=== PATIENT | female | born 1960 | race Caucasian/White ===

== ENCOUNTER 2018-12-17 20:38 | Emergency (ER) | payer BC ==
[2018-12-17] MEDS ORDERED: Ibuprofen TAB* 600 MG PO ONE (21:09)
--- NOTE | 2018-12-17 21:10 | ED ---
Upper Extremity Pain - HPI Summary HPI Summary: Patient is a 58-year-old female department for laceration to right fingers after reaching into laworower. Incident occurred just prior to arrival. Patient unaware of last tetanus immunization. No significant past medical history. Symptoms are mild in severity. Moving and touching affected areas makes symptoms worse. Rest makes symptoms better. - History of Current Complaint Chief Complaint: EDLacSutureRecheck Stated Complaint: CAME CLOSE TO CHOPPING MY FINGERS OFF PER PT Time Seen by Provider: 12/17/18 20:52 Hx Obtained From: Patient - Allergies/Home Medications Allergies/Adverse Reactions: Allergies Allergy/AdvReac Type Severity Reaction Status Date / Time metronidazole [From Flagyl] Allergy Dizziness Verified 12/17/18 20:44 PMH/Surg Hx/FS Hx/Imm Hx Previously Healthy: Yes - Surgical History Surgery Procedure, Year, and Place: left and right ovary removed, right foot reconstruction Infectious Disease History: No Infectious Disease History: Denies: Hx Clostridium Difficile, Hx Hepatitis, Hx Human Immunodeficiency Virus (HIV), Hx Shingles, Hx Tuberculosis, History Other Infectious Disease, Traveled Outside the in Last 30 Days - Family History Known Family History: Positive: Non-Contributory - Social History Occupation: Employed Full-time Lives: With Family Alcohol Use: None Substance Use Type: Reports: None Smoking Status (MU): Heavy Every Day Tobacco Smoker Review of Systems Positive: Other - pain and lacerations right hand 3rd and 4th digits Negative: Weakness, Paresthesia, Numbness All Other Systems Reviewed And Are Negative: Yes Physical Exam Triage Information Reviewed: Yes Vital Signs On Initial Exam: Initial Vitals Temp Pulse Resp BP Pulse Ox 98.2 F 82 16 149/99 98 12/17/18 20:39 12/17/18 20:39 12/17/18 20:39 12/17/18 20:39 12/17/18 20:39 Vital Signs Reviewed: Yes Appearance: Positive: Well-Appearing - Pt. sitting on bed in NAD. present. Skin: Positive: Warm, Dry Head/Face: Positive: Normal Head/Face Inspection Eyes: Positive: Normal, EOMI, LUCRECIA Neck: Positive: Supple Musculoskeletal: Positive: Other - Noted to 3rd and 4th digits of right hand there are superficial lacerations noted along lateral aspect of nails. Minimal bleeding. No damage to nailbeds. Ecchymosis noted to pad of fingers. Full ROM. Neurological: Positive: Normal, CN Intact II-III Procedures - Procedure Summary Procedure Summary: Wound care: Superficial <1cm wounds to 3rd and 4th digits were clean with hibiclens and saline. Bacitracin and sterile dressing placed. - Splinting Right 4th Digit Pre-Made Type: metal - finger splint Pre-Proc Neuro Vasc Exam: normal Post-Proc Neuro Vasc Exam: normal Right 3rd Digit Pre-Made Type: metal - finger splint Pre-Proc Neuro Vasc Exam: normal Post-Proc Neuro Vasc Exam: normal Diagnostics - Vital Signs Vital Signs Temp Pulse Resp BP Pulse Ox 12/17/18 20:39 98.2 F 82 16 149/99 98 - Laboratory Lab Statement: Any lab studies that have been ordered have been reviewed, and results considered in the medical decision making process. Course/Dx - Course Course Of Treatment: Pt. presenting for injury to 3rd and 4th digits of right hand. Motrin given. Tetanus updated. Xrays shows distal phalanx fx to 3rd and 4th digits per my reading. No suturable wound. Wounds were cleaned and splinted as noted above. Pt. started on keflex. Pt. would like to continue motrin for pain as home. To schedule f.u with orhopedics. To ice and elevate. Return to ER for redness, swelling, drainage or if concerned. Pt. understands and agrees with plan. - Diagnoses Differential Diagnosis/HQI/PQRI: Positive: Fracture (Closed), Strain, Sprain Provider Diagnoses: Open finger fracture Discharge - Sign-Out/Discharge Documenting (check all that apply): Patient Departure Patient Received Moderate/Deep Sedation with Procedure: No - Discharge Plan Condition: Good Disposition: HOME Prescriptions: Cephalexin CAP* [Keflex CAP*] 500 mg PO BID #20 cap Patient Education Materials: Finger Fracture (ED), Acute Wounds (ED) Referrals: Tessa Mcintosh MD [Primary Care Provider] - Sky Ordaz MD [Medical Doctor] - Additional Instructions: Call the orthopedic office tomorrow to schedule a follow up appointment Keep splints in place Keep wounds clean and dry Take antibiotic as directed Ice and elevate Tylenol or Motrin for pain as directed Return to ER for redness, swelling, drainage, fever, or if concerned - Billing Disposition and Condition Condition: GOOD Disposition: Home
[2018-12-17] MEDS ORDERED: Tetan/Diph/Pertus SYR(Tdap)* 0.5 ML SYR(BOOSTRIX) use SYR IM ONE (21:12)
[2018-12-17] MEDS ORDERED: Cephalexin CAP* 500 MG PO ONE (22:15)
[2018-12-17 23:16] VITALS: BP 122/79
== END 2018-12-17 23:13 | disposition home or self-care (01) ==
LOC: ED 20:38
DX: S62.602B Fracture of unspecified phalanx of right middle finger, initial encounter for open fracture (principal); S62.604B Fracture of unspecified phalanx of right ring finger, initial encounter for open fracture; W31.9XXA Contact with unspecified machinery, initial encounter; Y93.H9 Activity, other involving exterior property and land maintenance, building and construction; Z88.8 Allergy status to other drugs, medicaments and biological substances; F17.210 Nicotine dependence, cigarettes, uncomplicated
CPT/HCPCS: 90471; 90715; 99282; A9270-GY

== ENCOUNTER 2019-10-06 09:59 | Emergency (ER) | payer BC ==
[2019-10-06 10:24] LABS: ABS Basophils 0.1 10^3/ul (0-0.2); ABS Eosinophils 0.3 10^3/ul (0-0.6); ABS Lymphocytes 2.9 10^3/ul (1.0-4.8); ABS Monocytes 0.5 10^3/ul (0-0.8); ABS Neutrophils 7.1 10^3/ul (1.5-7.7); Eosinophil % 2.7 %; Hematocrit 42 % (35-47); Hemoglobin 14.2 g/dL (12.0-16.0); Lymphocyte % 26.5 %; Mean Corpuscular HGB Conc 34 g/dL (31-36); Mean Corpuscular Hemoglobin 29 pg (27-31); Mean Corpuscular Volume 86 fL (80-97); Mean Platelet Volume 7.9 fL (7.4-10.4); Platelet Count 229 10^3/uL (150-450); Red Blood Count 4.88 10^6 /uL (3.70-4.87); Red Cell Distribution Width 14 % (10-15); White Blood Count 10.9 10^3/uL (3.5-10.8)
[2019-10-06 10:29] LABS: INR 0.96 (0.82-1.09)
--- NOTE | 2019-10-06 10:35 | ED ---
HPI Chest Pain - HPI Summary HPI Summary: Patient is a 59 y/o F presenting to [facility] with complaints of left anterior chest pain that onset 5-6 days ago. Episodes of pain are intermittent and last a few seconds. Pain is characterized as a twitching sensation. Episodes of pain have been occurring more frequently and she states that she has begun to experience a twitching sensation down her left arm since last night. She states that episodes of pain increased in severity today. Patient also notes experiencing indigestion and left eye twitching. She denies nausea, diaphoresis , SOB, pain/swelling at legs. No similar previous episodes are noted. She reports Hx of panic disorder and anxiety but states that this presentation of Sx is uncharacteristic of her anxiety episodes. Patient denies PMHx of PE, recent long travel, recent surgeries, and hormone therapy. PMHx of Lyme disease is noted. FMHx of rheumatoid arthritis in mother reported. PMHx of HTN, diabetes and HLD are denied. Patient takes vitamin C and D supplements, adult ASA, and tinctures for Lyme disease. She states that she quit smoking cigarettes yesterday, quit smoking marijuana 3 weeks ago, and denies alcohol consumption. Home medications and allergies are reviewed. - History of Current Complaint Chief Complaint: EDChestPainROMI Time Seen by Provider: 10/06/19 10:24 Hx Obtained From: Patient Onset/Duration: Started Days Ago Timing: Intermittent Current Severity: None Pain Intensity: 0 Pain Scale Used: 0-10 Numeric Chest Pain Location: Left Anterior Character: Other: - twitching sensation Associated Signs and Symptoms: Positive: Chest Pain, Other: - positive - indigestion, left eye twitching, left arm twitching. Negative: Shortness of Breath, Diaphoresis, Nausea, Calf Pain/Swelling - Allergy/Home Medications Allergies/Adverse Reactions: Allergies Allergy/AdvReac Type Severity Reaction Status Date / Time metronidazole [From Flagyl] Allergy Dizziness Verified 12/17/18 20:44 Home Medications: Home Medications Ascorbic Acid TAB* [Vitamin C TAB*] 500 mg PO DAILY 10/06/19 [History Confirmed 10/06/19] Aspirin EC TAB* [Ecotrin EC TAB*] 325 mg PO DAILY 10/06/19 [History Confirmed ] Cholecalciferol TAB* [Vitamin D TAB*] 10,000 units PO DAILY 10/06/19 [History Confirmed 10/06/19] Lyme Support 0.25 - 0.5 teasp PO TID 10/06/19 [History Confirmed 10/06/19] Peace And Calm Drops 2 - 3 drop PO DAILY PRN 10/06/19 [History Confirmed ] PMH/Surg Hx/FS Hx/Imm Hx Endocrine/Hematology History: Denies: Hx Diabetes Cardiovascular History: Denies: Hx Hypercholesterolemia, Hx Hypertension - Surgical History Surgery Procedure, Year, and Place: left and right ovary removed, right foot reconstruction Infectious Disease History: No Infectious Disease History: Denies: Hx Clostridium Difficile, Hx Hepatitis, Hx Human Immunodeficiency Virus (HIV), Hx Shingles, Hx Tuberculosis, History Other Infectious Disease, Traveled Outside the [place] in Last 30 Days - Family History Known Family History: Positive: Respiratory Disease - asthma , Other - rheumatoid arthritis - Social History Alcohol Use: None Substance Use Type: Reports: None Smoking Status (MU): Former Smoker - as of 10/05/19 Review of Systems Negative: Skin Diaphoresis Eyes: Other - positive - left eye twitching Positive: Chest Pain Negative: Shortness Of Breath Gastrointestinal: Other - positive - indigestion Negative: Nausea Musculoskeletal: Other - positive - left arm twitching; negative - pain/ swelling at BLE All Other Systems Reviewed And Are Negative: Yes Physical Exam - Summary Physical Exam Summary: Constitutional: Well-developed, Well-nourished, Alert. (-) Distressed Skin: Warm, Dry HENT: Normocephalic; Atraumatic Eyes: Conjunctiva normal Neck: Musculoskeletal ROM normal neck. (-) JVD, (-) Stridor, (-) Tracheal deviation Cardio: Rhythm regular, rate normal, Heart sounds normal; Intact distal pulses; Radial pulses are 2+ and symmetric. (-) Murmur Pulmonary/Chest wall: Effort normal. (-) Respiratory distress, (-) Wheezes, (-) Rales Abd: Soft, (-) tenderness, (-) Distension, (-) Guarding, (-) Rebound Musculoskeletal: (-) Edema Lymph: (-) Cervical adenopathy Neuro: Alert, Oriented x3 Psych: Mood and affect Normal Triage Information Reviewed: Yes Vital Signs On Initial Exam: Initial Vitals Temp Pulse Resp BP Pulse Ox 98.7 F 80 20 151/87 99 10/06/19 10:06 10/06/19 10:06 10/06/19 10:06 10/06/19 10:06 10/06/19 10:06 Vital Signs Reviewed: Yes Procedures - Sedation Patient Received Moderate/Deep Sedation with Procedure: No Diagnostics - Vital Signs Vital Signs Temp Pulse Resp BP Pulse Ox 10/06/19 10:06 98.7 F 80 20 151/87 99 - Laboratory Lab Results: Lab Results 10/06/19 Range/Units 10:14 WBC 10.9 H (3.5-10.8) 10^3/uL RBC 4.88 H (3.70-4.87) 10^6 /uL Hgb 14.2 (12.0-16.0) g/dL Hct 42 (35-47) % MCV 86 (80-97) fL MCH 29 (27-31) pg MCHC 34 (31-36) g/dL RDW 14 (10-15) % Plt Count 229 (150-450) 10^3/uL MPV 7.9 (7.4-10.4) fL Neut % (Auto) 64.7 % Lymph % (Auto) 26.5 % [place] % (Auto) 4.9 % Eos % (Auto) 2.7 % Baso % (Auto) 1.2 % Absolute Neuts (auto) 7.1 (1.5-7.7) 10^3/ul Absolute Lymphs (auto) 2.9 (1.0-4.8) 10^3/ul Absolute Monos (auto) 0.5 (0-0.8) 10^3/ul Absolute Eos (auto) 0.3 (0-0.6) 10^3/ul Absolute Basos (auto) 0.1 (0-0.2) 10^3/ul Absolute Nucleated RBC 0.0 10^3/ul Nucleated RBC % 0.0 Result Diagrams: 10/06/19 10:14 10/06/19 10:14 Lab Statement: Any lab studies that have been ordered have been reviewed, and results considered in the medical decision making process. - Radiology CXR Radiology Interpretation Completed By: Radiologist Summary of Radiographic Findings: IMPRESSION: NO ACTIVE CARDIOPULMONARY DISEASE. THIS REPORT WAS REVIEWED BY ED PHYSICIAN. - EKG 0959 Cardiac Rate: NL - rate of 70 BPM EKG Rhythm: Sinus Rhythm EKG Comparison: No Significant Change - compared to 08/17/14 EKG Summary of EKG Findings: EKG showed NSR with rate of 70 BPM, no significant changes compared to 08/17/14 EKG, no STEMI. ED physician has reviewed and interpreted this EKG. Chest Pain Course/Dx - Course Course Of Treatment: Patient is here left sided chest pain that occurs periodically and only last a couple of seconds. Patient is overall well- appearing. Patient EKG showed no evidence of ischemia. Patient's serial troponins which were negative. Patient had a low well score and had a negative d-dimer. Patient's symptoms do not sound ischemic in nature. Patient is discharged with PCP follow-up - Diagnoses Provider Diagnoses: Chest pain Discharge ED - Sign-Out/Discharge Documenting (check all that apply): Patient Departure - discharge - Discharge Plan Condition: Stable Disposition: HOME Patient Education Materials: Chest Pain (ED) Referrals: Tessa Mcintosh MD [Primary Care Provider] - 3 Days Additional Instructions: PLEASE FOLLOW UP WITH YOUR PRIMARY CARE PHYSICIAN WITHIN THREE DAYS FOR POSSIBLE CARDIAC STRESS TEST. PLEASE RETURN TO ED FOR PERSISTENT CHEST PAIN, SHORTNESS OF BREATH, OR ANY OTHER CONCERNING SYMPTOMS. - Billing Disposition and Condition Condition: STABLE Disposition: Home - Attestation Statements Document Initiated by Sinanibjeanne: Yes Documenting Scribe: USHA LEAHY Provider For Whom Aleksey is Documenting (Include Credential): AZIZA MARIE MD Scribe Attestation: USHA Pablo, scribed for AZIZA MARIE MD on 10/06/19 at 2111. Scribe Documentation Reviewed: Yes Provider Attestation: The documentation as recorded by the USHA huffman accurately reflects the service I personally performed and the decisions made by AZIZA kowalski MD Status of Scribe Document: Viewed
[2019-10-06 10:39] LABS: Albumin 4.1 g/dL (3.2-5.2); Albumin/Globulin Ratio 1.5 (1-3); BUN/Creatinine Ratio 26.6 (8-20); Calcium 9.2 mg/dL (8.6-10.3); EGFR African American 115.3 (>60); EGFR Non-African American 95.3 (>60); Globulin 2.8 g/dL (2-4); Potassium 4.2 mmol/L (3.5-5.0); Total Bilirubin 0.4 mg/dL (0.2-1.0); Total Protein 6.9 g/dL (6.4-8.9)
[2019-10-06 13:52] VITALS: BP 128/88
== END 2019-10-06 14:00 | disposition home or self-care (01) ==
LOC: ED 09:59
DX: R07.9 Chest pain, unspecified (principal); Z87.891 Personal history of nicotine dependence; Z79.82 Long term (current) use of aspirin; Z79.899 Other long term (current) drug therapy; Z88.1 Allergy status to other antibiotic agents
CPT/HCPCS: 36415; 71046; 80053; 84484; 85025; 85379; 85610; 93005; 99283